=== PATIENT | male | born 1955 | race Caucasian/White ===

== ENCOUNTER 2022-11-03 10:46 | Inpatient (IN) | payer MEDICARE, OTHER, SELFPAY ==
--- NOTE | ~2022-11-03 | CT_ITS ---
EXAMINATION: CT abdomen pelvis w con DATE: 11/03/2022 14:41 INDICATION: Urinary retention. Pelvic pain. Burning with urination. TECHNIQUE: Computed tomography (CT) of the abdomen and pelvis was performed with 100 cc Omnipaque 350 intravenous contrast. The dose-length product was 679.85 mGy-cm. Automated exposure control and iter ative reconstruction technique were employed. COMPARISON: None. FINDINGS: There is dependent atelectasis. No significant pleural or pericardial effusion. Heart size normal. There are cystic structures in the renal kyrie bilaterally which may represent extrarenal pelv is or parapelvic cysts. No ureteral dilation. Bladder wall is thickened and slightly irregular, altho ugh decompressed from Gill catheter. Prostate gland is significantly enlarged. Nonobstructive bowel pattern. Small fat-containing umbilical hernia. Normal appendix. No free air or free fluid. No signif icant vascular abnormality. No lymphadenopathy. There is mild-moderate lumbar spondylosis. 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 No suspicious lytic or blastic lesions. No significant vascular abnormalit y. No lymphadenopathy. Gallbladder is present. No free air or free fluid. There is fatty infiltration of the liver. The spleen, pancreas, adrenal glands are unremarkable. IMPRESSION: 1. Mild bladder wall thickening with slight irregular margins which may represent sequela of outlet o bstruction from enlarged prostate gland and/or cystitis. Reviewed, dictated and finalized at location A. [facility] IMPRESSION: 1. Mild bladder wall thickening with slight irregular margins which may represe nt sequela of outlet obstruction from enlarged prostate gland and/or cystitis.
[2022-11-03 11:16] VITALS: BP 160/83; PULSE 95; RESP 14; TEMP 36.8; O2SAT 99
--- NOTE | 2022-11-03 12:31 | ED.MALEGU ---
HPI - Male Genitourinary General Chief complaint: Urogenital-Male Stated complaint: urinary retention that began last night Time Seen by Provider: 11/03/22 12:03 History of Present Illness HPI Narrative: Patient is a 67-year-old male presenting with urinary retention. States that he has not been able to urinate since last night. He complains of a lot of fullness in his lower abdomen. He states that he has had some dysuria lately. Reports he had an episode of urinary retention about a decade ago that required a temporary Gill catheter. He denies fevers, chest pain, shortness of breath, cough, vomiting, leg swelling. Related Data Home Medications Medication Instructions Recorded Confirmed atorvastatin 20 mg tablet 20 mg PO QHS 08/04/22 11/03/22 Allergies Allergy/AdvReac Type Severity Reaction Status Date / Time No Known Drug Allergies Allergy Unknown Unknown Verified 11/03/22 10:47 Review of Systems Review of Systems: All systems reviewed & are unremarkable except as noted in HPI and below PMFSH Past Medical History Medical History Hyperlipidemia Hypertension Surgical History Surgical History History of inguinal hernia repair History of removal of cyst Sebaceous cyst upper back. Family History Family History Other Colon cancer Diabetes mellitus Heart disease Social History Social History (Updated 11/03/22 @ 23:50 by Gunjan Cash PA-C) Social History: Surrogate medical decision maker: Jina Red, sibling. Code status: Full code. Smoking packs per day: 2 Smoking cigarettes per day: 40.0 Years smoked: 25 Smoking pack-years: 50.00 Smoking status: Former smoker Tobacco type: cigarettes Alcohol intake: current Drinks per week: 21 Substance use: never Lack of Transportation: No Lack of Food: Never True Current Housing: I Have Housing Concerned About Future Housing: No Difficulty Paying Gas/Electric Bills: No Difficulty Paying for Meds: No Currently Unemployed: No Education: High School Diploma/GED Difficulty w/ Childcare or Family Care: No Additional living arrangements comments: Lives in [place]. Spiritual care concerns: No Exam Narrative: GENERAL: Uncomfortable appearing HEAD: Normocephalic, atraumatic. EYES: PERRLA and EOMI. ENT: Nares clear, no rhinorrhea or epistaxis. Mucous membranes moist. NECK: Supple. CHEST: Clear to auscultation. No respiratory distress. HEART: Regular rate and rhythm ABDOMEN: Soft, mild tenderness in suprapubic region EXTREMITIES: Normal range of motion. No edema. SKIN: Warm, dry, no rash. NEURO: No focal deficits. Alert and oriented x3. PSYCH: Normal mood and affect. Course Vital Signs Vital signs: Vital Signs Temperature 98.2 F 11/03/22 11:16 Pulse Rate 95 11/03/22 11:16 Respiratory Rate 14 11/03/22 11:16 Blood Pressure 160/83 H 11/03/22 11:16 Pulse Oximetry 99 11/03/22 11:16 Oxygen Delivery Room Air 11/03/22 11:16 Temperature 98.6 F 11/03/22 20:03 Pulse Rate 78 11/04/22 08:00 Respiratory Rate 18 11/04/22 08:00 Blood Pressure 128/67 11/03/22 20:03 Pulse Oximetry 95 11/03/22 20:03 Oxygen Delivery Room Air 11/04/22 08:00 MDM - Male Genitourinary MDM Narrative Medical decision making narrative: Patient is a 67-year-old male presenting with urinary retention. Patient is hypertensive, otherwise vitals are within normal limits. Exam is remarkable for the above. Gill catheter was placed with drainage of only 30 to 50 cc of urine. It is clear, no blood is noted. The Gill catheter was placed without difficulty. Bedside ultrasound without adequate images to ascertain bladder size or if the Gill is truly in place. CT abdomen pelvis ordered. White count of 21. Rocephin has been
[2022-11-03 13:14] LABS: Basophils Absolute Auto 0.1 K/mm3 (0.0-0.1); Basophils Percent Auto 0.3 % (0.2-1.2); Eosinophils Percent Auto 0.1 % (0-4.4); Hematocrit 48.3 % (42.0-52.0); Hemoglobin 16.5 g/dL (14.0-18.0); Immature Granulocyte Absolute 0.12 K/mm3 (0.00-0.031); Immature Granulocyte Percent A 0.6 % (0-0.5); Lymphocytes Absolute Auto 0.73 K/mm3 (0.9-3.2); Lymphocytes Percent Auto 3.5 % (18.3-44.2); Mean Corpuscular HGB Conc 34.2 g/dl (32-36); Mean Corpuscular Hemoglobin 30.7 pg (26-34); Mean Corpuscular Volume 89.8 fl (80-100); Mean Platelet Volume 9.5 fl (7.4-10.4); Monocytes Absolute Auto 0.9 K/mm3 (0.1-0.6); Monocytes Percent Auto 4.3 % (2.6-8.5); Neutrophils Absolute Auto 19.2 K/mm3 (1.3-6.7); Neutrophils Percent Auto 91.2 % (45.5-73.1); Platelet Count Result 252 k/mm3 (150-375); Red Blood Count 5.38 M/mm3 (4.6-6.20); Red Cell Distribution Width 12.1 % (11.5-14.5)
[2022-11-03 13:16] LABS: Appearance Urine Clear (Clear); Bilirubin Urine Negative (Negative); Blood Urine Trace-intact (Negative); Color Urine Yellow (Yellow); Glucose Urine UA Negative (Negative); Ketones Urine Trace mg/dL (Negative); Leukocyte Esterase Ur Trace LEU/UL (Negative); Nitrate Urine Negative (Negative); Protein Urine Negative (Negative); Urobilinogen Urine 0.2 mg/dL (<2.0); pH Urine 5.5 (5.0-9.0)
[2022-11-03 13:18] LABS: Mucus Urine Rare /lpf; Squamous Epithelial Cell Urine Rare /hpf (Few); WBC Urine 21-30 /hpf
[2022-11-03 13:28] LABS: Add Urine Microscopic? YES
[2022-11-03 13:32] LABS: Alanine Aminotransferase 23 U/L (6-50); Albumin Level 4.5 g/dL (3.5-5.1); Alkaline Phosphatase 75 U/L (38-126); Anion Gap 8 mmol/L (8-16); Aspartate Amino Transferase 29 U/L (17-59); Bilirubin,Total 1.4 mg/dL (0.2-1.3); Blood Urea Nitrogen 15 mg/dL (9-20); Calcium 8.6 mg/dL (8.4-10.2); Carbon Dioxide 22 mmol/L (22-30); Chloride 105 mmol/L (98-107); Estimated CRCL calculation 73 ml/min; Estimated Glomerular Filt Rate > 60; Glucose 97 mg/dL (65-110); Potassium 4.4 mmol/L (3.4-5.0); Sodium 135 mmol/L (137-145)
[2022-11-03] MEDS: HYDROmorphone HCL INJ (*CRX) 1 MG/ML SYR 0.5 MG IV PUSH ×2 (14:55→17:02)
[2022-11-03] MEDS: ONDANSETRON INJ 4 MG/2 ML VIAL IV PUSH (15:12)
--- NOTE | 2022-11-03 17:00 | PC.NURSE ---
Contact patient's sister Carol with any updates or if discharged. Carol De [phone]
[2022-11-03] MEDS: SODIUM CHLORIDE 0.9% IV 1,000 ML 999 ML IV CONT (17:02)
[2022-11-03] MEDS: oxyBUTYnin CHLORIDE 5 MG TABLET PO (18:06)
[2022-11-03 18:10] VITALS: BP 147/75; PULSE 85; RESP 18; O2SAT 95
[2022-11-03 18:18] LABS: Influenza A QL RT-PCR Negative (Negative); Influenza B QL RT-PCR Negative (Negative); SARS-CoV-2 RNA PCR Negative
[2022-11-03 20:03] VITALS: BP 128/67; PULSE 78; RESP 18; TEMP 37; O2SAT 95
[2022-11-03 20:22] VITALS: BMI 32.3
--- NOTE | 2022-11-03 21:30 | PM.IMHP ---
H&P: HPI History of Present Illness Date/Time: 11/03/22 21:30 Chief Complaint: Difficulties urinating. Narrative: This is a 67-year-old male with hypertension, hyperlipidemia, enlarged prostate, and history of prostatitis 10 years ago presented to the emergency department with complaints of difficulties urinating. Patient provides the following history. He has not been able to urinate in any significant quantities since last evening and he has the sense that his bladder is full. He has intermittent issues with slow stream and feelings as though he is not completely emptying his bladder. The last couple of days he has had some mild dysuria but nothing significant. He has not had fever, chills, or sweats. He has not noticed any fullness in the perineum and denies testicular pain. No nausea, vomiting, or diarrhea. Gill catheter was inserted upon arrival to the emergency department and surprisingly only 50 mL of urine was obtained. CT of the abdomen and pelvis shows findings suggestive of acute cystitis and a significantly enlarged prostate. He has since been started on IV antibiotics and is being admitted in this setting for further treatment and urology consultation. Review of Systems Review of Systems: Twelve systems were reviewed and are negative except for as per HPI. [facility] Past Medical History Medical History Hyperlipidemia Hypertension Surgical History Surgical History History of inguinal hernia repair History of removal of cyst Sebaceous cyst upper back. Family History Family History Other Colon cancer Diabetes mellitus Heart disease Social History Social History (Updated 11/03/22 @ 23:50 by Gunjan Cash PA-C) Social History: Surrogate medical decision maker: Jina Red, sibling. Code status: Full code. Smoking packs per day: 2 Smoking cigarettes per day: 40.0 Years smoked: 25 Smoking pack-years: 50.00 Smoking status: Former smoker Tobacco type: cigarettes Alcohol intake: current Drinks per week: 21 Substance use: never Lack of Transportation: No Lack of Food: Never True Current Housing: I Have Housing Concerned About Future Housing: No Difficulty Paying Gas/Electric Bills: No Difficulty Paying for Meds: No Currently Unemployed: No Education: High School Diploma/GED Difficulty w/ Childcare or Family Care: No Additional living arrangements comments: Lives in [place]. Spiritual care concerns: No Meds Home Medications and Allergies Home Medications Medication Instructions Recorded Confirmed Type amlodipine 5 mg-benazepril 10 mg 1 cap PO DAILY #90 caps 08/04/22 11/03/22 Rx capsule (Lotrel) atorvastatin 20 mg tablet 20 mg PO QHS 08/04/22 11/03/22 History Allergies Allergy/AdvReac Type Severity Reaction Status Date / Time No Known Drug Allergies Allergy Unknown Unknown Verified 11/03/22 10:47 Vital Signs Vital Signs - 24 hr 11/03/22 11:16 11/03/22 18:10 11/03/22 20:03 Temperature 98.2 F 98.6 F Pulse Rate 95 85 78 Respiratory Rate 14 18 18 Blood Pressure 160/83 H 147/75 H 128/67 Pulse Oximetry 99 95 95 Oxygen Delivery Room Air Exam Narrative: General: Mildly ill-appearing male in the semi-Hannah position in bed. He appears uncomfortable. weight: 90.7 kg. BMI: 32.3. HEENT: PERRL, EOMI. Sclera anicteric. Tacky mucous membranes. Neck: Supple. Respiratory: Lungs are clear to auscultation bilaterally. Cardiovascular: Regular rate and rhythm with S1-S2. Gastrointestinal: Abdomen is soft, nontender, and nondistended with positive bowel sounds. Genitourinary: Gill catheter draining dark yellow urine. No swelling, redness, or tenderness of the scrotal sac. No perineal tenderness. Skin: Warm and dry. Face is a bit flushed. Extremities: No cyano
--- NOTE | 2022-11-03 21:41 | WPDURCON ---
Assessment and Plan Assessment and plan (1) BPH loc w urin obs/LUTS: Code(s): N40.1 - Benign prostatic hyperplasia with lower urinary tract symptoms Status: Acute (2) Acute cystitis: Code(s): N30.00 - Acute cystitis without hematuria Status: Acute Assessment and Plan: I suspect underlying prostatism with incomplete bladder emptying as the explanation for patient's episode of acute prostatitis Agree with ceftriaxone pending a culture result Will add tamsulosin for suspected underlying prostatism. Will also stop oxybutynin. We can use Pyridium and [place] for catheter discomfort. Patient can resume his normal diet is I it do not anticipate any need for surgical intervention at this time Urology Consult Note HPI Date Seen: 11/03/22 Requesting Physician: Stephanie Morales MD Primary Care Provider: PHYSICIAN NOT ON STAFF Consult Narrative Narrative: Jah Red is a 67 year old male, who I have met once 10 years ago with an episode of acute prostatitis, presents to the ED with a sense of urinary retention. Surprisingly, with catheterization only 50 cc of urine was obtained. CT scan and urinalysis to suggest acute cystitis. Close questioning he does report some component of prostatism on a regular basis. He has some slowing of his stream and a sense, on occasion, incomplete emptying. He denies prior history of urinary tract infection or urolithiasis, other than the episode of prostatitis in 2013. Review of Systems Cardiovascular: Cardiovascular: Denies chest pain, Denies lightheadedness, Denies palpitations and Denies dyspnea Respiratory: Respiratory: Denies dyspnea Gastrointestinal: Gastrointestinal: Denies diarrhea, Denies nausea and Denies vomiting Genitourinary: Genitourinary: Denies hematuria and Denies dysuria Endocrine: Endocrine: Denies palpitations [facility] Past Medical History Medical History (Updated 11/03/22 @ 21:43 by Rashi Schulz MD) Hyperlipidemia Hypertension Surgical History Surgical History (Updated 11/03/22 @ 21:24 by Gunjan Cash PA-C) History of inguinal hernia repair History of removal of cyst Sebaceous cyst upper back. Family History Family History Other Colon cancer Diabetes mellitus Heart disease Social History Social History (Updated 11/03/22 @ 21:24 by Gunjan Cash PA-C) Social History: Surrogate medical decision maker: Code status: Full code. Smoking packs per day: 2 Smoking cigarettes per day: 40.0 Years smoked: 25 Smoking pack-years: 50.00 Smoking status: Former smoker Tobacco type: cigarettes Alcohol intake: current Drinks per week: 21 Substance use: never Lack of Transportation: No Lack of Food: Never True Current Housing: I Have Housing Concerned About Future Housing: No Difficulty Paying Gas/Electric Bills: No Difficulty Paying for Meds: No Currently Unemployed: No Education: High School Diploma/GED Difficulty w/ Childcare or Family Care: No Additional living arrangements comments: Lives in [place]. Spiritual care concerns: No Meds Home Medications and Allergies Home Medications Medication Instructions Recorded Confirmed Type amlodipine 5 mg-benazepril 10 mg 1 cap PO DAILY #90 caps 08/04/22 11/03/22 Rx capsule (Lotrel) atorvastatin 20 mg tablet 20 mg PO QHS 08/04/22 11/03/22 History Allergies Allergy/AdvReac Type Severity Reaction Status Date / Time No Known Drug Allergies Allergy Unknown Unknown Verified 11/03/22 10:47 Vital Signs Vital Signs - 24 hr 11/03/22 11:16 11/03/22 18:10 11/03/22 20:03 Temperature 98.2 F 98.6 F Pulse Rate 95 85 78 Respiratory Rate 14 18 18 Blood Pressure 160/83 H 147/75 H 128/67 Pulse Oximetry 99 95 95 Oxygen Delivery Room Air Exam Const: General: no acute distress Resp: Effort & Inspection: normal respiratory effort GI:
[2022-11-03] MEDS: PHENAZOPYRIDINE HCL 100 MG TABLET 200 MG PO (22:20)
[2022-11-04] MEDS: HYDROcodone/acetaminophen (*CRX) 5-325 MG TABLET 1 TAB PO (05:47)
--- NOTE | 2022-11-04 07:42 | WPDUROPN2 ---
Progress Note: A&P Assessment and Plan (1) Benign localized prostatic hyperplasia with lower urinary tract symptoms (LUTS): Code(s): N40.1 - Benign prostatic hyperplasia with lower urinary tract symptoms Status: Acute (2) Acute cystitis: Code(s): N30.00 - Acute cystitis without hematuria Status: Acute Assessment and Plan: Much improved today. Continue Ceftriaxone pending culture. Tamsulosin indefinately. Voiding trial Sat. morning. Subjective Subjective Date/Time Seen: 11/04/22 07:42 Urethral irritation much improved Exam Const: General: no acute distress Resp: Effort & Inspection: normal respiratory effort GI: Inspection: non-distended GI Palp: No abdominal tenderness and No Guarding due to palpation present (GI) Auscultation: normal bowel sounds Objective Data Vital Signs Vital Signs: Vital Signs - 24 hr 11/03/22 11:16 11/03/22 18:10 11/03/22 20:03 Temperature 98.2 F 98.6 F Pulse Rate 95 85 78 Respiratory Rate 14 18 18 Blood Pressure 160/83 H 147/75 H 128/67 Pulse Oximetry 99 95 95 Oxygen Delivery Room Air Intake/Output Intake/Output: Intake & Output 11/01/22 11/02/22 11/03/22 11/04/22 23:59 23:59 23:59 23:59 Intake Total 1050 Balance 1050 Meds/Results Medications: Active Medications Generic Name Dose Route Start Last Admin Trade Name Freq PRN Reason Stop Dose Admin Amlodipine Besylate 5 mg 11/04/22 09:00 Amlodipine Besylate 5 Mg Tablet PO 12/04/22 08:59 DAILY [facility] Atorvastatin Calcium 20 mg 11/04/22 21:00 Atorvastatin 20 Mg Tablet PO QHS [facility] Lisinopril 10 mg 11/04/22 09:00 Lisinopril 10 Mg Tablet PO DAILY [facility] Phenazopyridine HCl 200 mg 11/03/22 21:45 11/03/22 22:20 Phenazopyridine Hcl 100 Mg Tablet PO 200 mg TIDWM PRN Administration Catheter Discomfort Tamsulosin HCl 0.4 mg 11/04/22 21:00 Tamsulosin Hcl 0.4 Mg Capsule PO QHS [facility] Radiology Results: ITS Impressions Abdomen/Pelvis CT 11/03/22 14:45 IMPRESSION: 1. Mild bladder wall thickening with slight irregular margins which may represent sequela of outlet obstruction from enlarged prostate gland and/or cystitis. Labs Labs: Laboratory Results - last 24 hr 11/03/22 11/03/22 11/03/22 12:55 12:55 12:55 WBC 21.0 H RBC 5.38 Hgb 16.5 Hct 48.3 MCV 89.8 MCH 30.7 MCHC 34.2 RDW 12.1 Plt Count 252 MPV 9.5 Immature Gran % (Auto) 0.6 H Neut % (Auto) 91.2 H Lymph % (Auto) 3.5 L [place] % (Auto) 4.3 Eos % (Auto) 0.1 Baso % (Auto) 0.3 Lymph # (Auto) 0.73 L [place] # (Auto) 0.9 H Eos # (Auto) 0.0 Baso # (Auto) 0.1 Abs Immat Gran (auto) 0.12 H Absolute Neuts (auto) 19.2 H Absolute Nucleated RBC 0.0 Nucleated RBC % 0.0 Sodium 135 L Potassium 4.4 Chloride 105 Carbon Dioxide 22 Anion Gap 8 BUN 15 Creatinine 0.90 Estim Creat Clear Calc 73 Estimated GFR > 60 Glucose 97 Calcium 8.6 Total Bilirubin 1.4 H AST 29 ALT 23 Alkaline Phosphatase 75 Total Protein 7.0 Albumin 4.5 Urine Color Yellow Urine Appearance Clear Urine pH 5.5 Ur Specific [place] 1.020 Urine Protein Negative Urine Glucose (UA) Negative Urine Ketones Trace Ur Blood (Man) Trace-intact Urine Nitrate Negative Urine Bilirubin Negative Urine Urobilinogen 0.2 Leukocyte Esterase Rfl Trace H Urine RBC 6-10 H Urine WBC 21-30 H Ur Squamous Epith Cells Rare Urine Mucus Rare Influenza A (RT-PCR) Influenza B (RT-PCR) SARS-CoV-2 RNA (RT-PCR) 11/03/22 17:32 WBC RBC Hgb Hct MCV MCH MCHC RDW Plt Count MPV Immature Gran % (Auto) Neut % (Auto) Lymph % (Auto) [place] % (Auto) Eos % (Auto) Baso % (Auto) Lymph # (Auto) [place] # (Auto) Eos # (Auto) Baso # (Auto) Abs Immat Gran (auto) Absolute Neuts (auto) Absolute Nucleated RBC N
[2022-11-04 08:00] VITALS: PULSE 78; RESP 18
[2022-11-04] MEDS: PHENAZOPYRIDINE HCL 100 MG TABLET 200 MG PO ×2 (09:36→20:04)
[2022-11-04] MEDS: lisinopriL 10 MG TABLET PO (09:36)
[2022-11-04] MEDS: amLODIPine BESYLATE 5 MG TABLET PO (09:36)
[2022-11-04 11:02] LABS: Hematocrit 44.7 % (42.0-52.0); Mean Corpuscular HGB Conc 33.6 g/dl (32-36); Mean Corpuscular Hemoglobin 30.4 pg (26-34); Mean Corpuscular Volume 90.5 fl (80-100); Mean Platelet Volume 9.5 fl (7.4-10.4); Platelet Count Result 199 k/mm3 (150-375); Red Blood Count 4.94 M/mm3 (4.6-6.20); Red Cell Distribution Width 12.5 % (11.5-14.5)
[2022-11-04 11:19] LABS: Anion Gap 5 mmol/L (8-16); Blood Urea Nitrogen 14 mg/dL (9-20); Calcium 8.4 mg/dL (8.4-10.2); Carbon Dioxide 26 mmol/L (22-30); Chloride 103 mmol/L (98-107); Estimated CRCL calculation 65 ml/min; Estimated Glomerular Filt Rate > 60; Glucose 116 mg/dL (65-110); Potassium 3.6 mmol/L (3.4-5.0); Sodium 134 mmol/L (137-145)
--- NOTE | 2022-11-04 11:47 | PM.IMPN ---
Progress Note: A&P Assessment and Plan (1) Benign localized prostatic hyperplasia with lower urinary tract symptoms (LUTS): Code(s): N40.1 - Benign prostatic hyperplasia with lower urinary tract symptoms Status: Acute Assessment and Plan: patient presented with urinary retention. reviewed urology notes and recommendations, consultation is appreciated. [place] to be secondary to underlying prostatism. continue with Gill catheter and plan for voiding trial tomorrow per Urology recommendations. Begin tamsulosin. Oxybutynin has been discontinued. Pyridium and hyoscyamine as needed for discomfort/ bladder spasm. monitor urine output (2) Prostatic enlargement: Code(s): N40.0 - Benign prostatic hyperplasia without lower urinary tract symptoms Status: Acute Assessment and Plan: as above (3) Cystitis: Code(s): N30.90 - Cystitis, unspecified without hematuria Status: Acute Assessment and Plan: evident on CT on admission. Urinalysis is abnormal. Urine culture is pending. Continue IV ceftriaxone while awaiting culture results (4) Hypertension: Code(s): I10 - Essential (primary) hypertension Status: Chronic Assessment and Plan: blood pressures are stable. Last BP 128/67. Continue home amlodipine -benazepril (5) Hyperlipidemia: Code(s): E78.5 - Hyperlipidemia, unspecified Status: Chronic Assessment and Plan: no acute issues. Continue home atorvastatin Time Spent With Patient Time: 35 minute spent on this encounter Time with patient: 25 - 35 minutes Subjective Date/time seen: 11/04/22 11:47 Interval history: date of service: 11/04/2022 Jah Red is a 67-year-old male with a history of hypertension, hyperlipidemia, prostatomegaly, and history of prostatitis 10 years ago who is seen in follow-up for bladder outlet obstruction. Patient reports he is doing better today but does have pain in his pelvic region and describes a pressure-like sensation in his penis. He reports the constant urge to urinate despite the Gill catheter being in place and draining. He denies suprapubic pain, flank pain, or back pain. Urine in the Gill bag is bright red, patient states he has not noticed this. He denied any episodes of hematuria prior to admission and this is felt to be secondary to Pyridium. Denies nausea, vomiting, fever, or chills. He is tolerating his diet. Denies shortness of breath, cough, chest pain, palpitations. Review of Systems Review of Systems: All systems reviewed & are unremarkable except as noted in HPI and below Exam Narrative: General: Well-nourished, well-appearing 67-year-old male, sitting up in bed, comfortable, NARD Neuro: awake, alert and oriented x4, speech clear, no focal neuro deficits noted HEENMT: normocephalic, atraumatic, EOMI, sclerae anicteric, moist oral mucosa Respiratory: clear to auscultation bilaterally, nonlabored breathing Cardio: regular rate, regular rhythm with S1-S2 Abdomen: nondistended, normoactive bowel sounds, soft, nontender to palpation : No CVA tenderness, Gill catheter patent and draining bright red urine Extremities: no edema, erythema, or tenderness to palpation, DP pulses 2+ bilaterally Skin: no rashes or lesions, warm and dry Psych: appropriate mood and affect, judgment and insight intact Objective Data Vital Signs Vital Signs: Vital Signs - 24 hr 11/03/22 18:10 11/03/22 20:03 11/04/22 08:00 Temperature 98.6 F Pulse Rate 85 78 78 Respiratory Rate 18 18 18 Blood Pressure 147/75 H 128/67 Pulse Oximetry 95 95 Oxygen Delivery Room Air Intake/Output Intake/Output: Intake & Output 11/01/22 11/02/22 11/03/22 11/04/22 23:59 23:59 23:59 23:59 Intake Total 1050 240 Balance 1050 240 Meds/Results Medications: Active Medications Generic Name Dose Route Start Last Admin Trade Name Freq PRN Reason Stop Dose Admin
[2022-11-04] MEDS: ACETAMINOPHEN 325 MG TABLET 650 MG PO (13:19)
[2022-11-04] MEDS: HYOSCYAMINE SULFATE 0.125 MG TABLET PO (13:20)
--- NOTE | 2022-11-04 13:21 | PCCCNOTE ---
On 11/04/22, the student, [Lindy Bautista], provided care and completed [facility] documentation on this patient. I have reviewed the student's documentation and agree with the findings.
[2022-11-04 14:17] VITALS: BP 136/60; PULSE 85; RESP 17; TEMP 36.8; O2SAT 96
[2022-11-04 19:57] VITALS: BP 157/88; PULSE 95; RESP 20; TEMP 37.4; O2SAT 97
[2022-11-04 20:00] VITALS: PULSE 95; RESP 20; O2SAT 97
[2022-11-04] MEDS: TAMSULOSIN HCL 0.4 MG CAPSULE PO (20:04)
[2022-11-04] MEDS: ATORVASTATIN 20 MG TABLET PO (20:04)
[2022-11-05] MEDS: LIDOCAINE HCL 2% GEL UROJET 10 ML PKG MUCOUS MEM (00:10)
[2022-11-05] MEDS: HYOSCYAMINE SULFATE 0.125 MG TABLET PO (03:34)
[2022-11-05 03:42] VITALS: BP 126/62; PULSE 80; RESP 18; TEMP 36.2; O2SAT 97
[2022-11-05 06:27] LABS: Hematocrit 46.8 % (42.0-52.0); Hemoglobin 15.7 g/dL (14.0-18.0); Mean Corpuscular HGB Conc 33.5 g/dl (32-36); Mean Corpuscular Hemoglobin 30.4 pg (26-34); Mean Corpuscular Volume 90.5 fl (80-100); Mean Platelet Volume 9.2 fl (7.4-10.4); Platelet Count Result 199 k/mm3 (150-375); Red Blood Count 5.17 M/mm3 (4.6-6.20); Red Cell Distribution Width 12.1 % (11.5-14.5); White Blood Count 12.7 K/mm3 (4.5-10.0)
[2022-11-05 06:44] LABS: Anion Gap 6 mmol/L (8-16); Blood Urea Nitrogen 13 mg/dL (9-20); Calcium 8.4 mg/dL (8.4-10.2); Carbon Dioxide 24 mmol/L (22-30); Chloride 101 mmol/L (98-107); Estimated CRCL calculation 65 ml/min; Estimated Glomerular Filt Rate > 60; Glucose 123 mg/dL (65-110); Potassium 3.9 mmol/L (3.4-5.0); Sodium 131 mmol/L (137-145)
[2022-11-05 10:20] VITALS: BP 153/95; PULSE 74; RESP 14; O2SAT 98
[2022-11-05] MEDS: amLODIPine BESYLATE 5 MG TABLET PO (10:20)
[2022-11-05] MEDS: lisinopriL 10 MG TABLET PO (10:21)
--- NOTE | 2022-11-05 11:52 | PM.DS ---
DS: Admitting Diagnosis Discharge Date 11/05/2022 Admitting Diagnosis urinary retention DS: Discharge Diagnosis Discharge Diagnosis (1) Benign localized prostatic hyperplasia with lower urinary tract symptoms (LUTS): Code(s): N40.1 - Benign prostatic hyperplasia with lower urinary tract symptoms Status: Acute Assessment and Plan: Patient presented with urinary retention. Patient was seen in consultation by Urology. [place] to be secondary to underlying prostatism. Gill catheter placed on admission. Voiding trial completed on 11/05/2022 and patient was able to void independently. Urinary symptoms resolved with Gill catheter discontinuation. Will follow-up with urology in 1-2 weeks as an outpatient (2) Prostatic enlargement: Code(s): N40.0 - Benign prostatic hyperplasia without lower urinary tract symptoms Status: Acute Assessment and Plan: as above (3) Cystitis: Code(s): N30.90 - Cystitis, unspecified without hematuria Status: Acute Assessment and Plan: evident on CT on admission. Patient started on IV ceftriaxone during admission urinalysis abnormal, however urine culture with less than 10,000 CFU seen Gram-negative organism isolated with no testing to be performed. Discussed with urology. Started on 7 day course of p.o. Cipro per Urology recommendations (4) Hypertension: Code(s): I10 - Essential (primary) hypertension Status: Chronic Assessment and Plan: blood pressures remained stable. Continue home amlodipine -benazepril (5) Hyperlipidemia: Code(s): E78.5 - Hyperlipidemia, unspecified Status: Chronic Assessment and Plan: No acute issues. Continue home atorvastatin DS: Summary Hospital Course Hospital Course: date of admission: 11/03/2022 date of discharge: 11/04/2022 Jah Red is a 67-year-old male with a history of hypertension, hyperlipidemia, prostatomegaly, and history of prostatitis 10 years ago who presented to the emergency department on 11/03/2022 with complaints of urinary retention for 1 day with recent dysuria. On presentation to the ED, his vital signs were stable, he was afebrile, WBC 21.0, additional laboratory workup unremarkable, urinalysis abnormal with trace leuk esterase and 21-30 WBC, and CT of the abdomen/pelvis showed mild bladder wall thickening with slightly irregular margins which may represent sequela outlet obstruction from enlarged prostate and/or cystitis. He was admitted to the hospitalist service for further evaluation and management and was seen in consultation by Urology. Please see above for further details. Gill catheter was initiated and patient was started on antibiotics. Also has been started on Flomax. Voiding trial completed on day of discharge, 11/05/2022 and patient able to void independently. He will continue with Flomax and will complete a 7 day course of Cipro per Urology recommendations. Outpatient follow-up with Urology in 1-2 weeks. Patient was instructed on worrisome signs and symptoms for which to return and he was educated on his medications. He was discharged in hemodynamically stable condition on 11/04/2022 Time Spent with Patient Time attestation: Total time spent providing and/or coordinating discharge services: 45 minutes Time spent: Greater than 30 minutes Exam Narrative: General: well-nourished, well-appearing 67-year-old male, sitting up in bed, comfortable, NARD Neuro: awake, alert and oriented x4, speech clear, no focal neuro deficits noted HEENMT: normocephalic, atraumatic, EOMI, sclerae anicteric, moist oral mucosa Respiratory: clear to auscultation bilaterally, nonlabored breathing Cardio: regular rate, regular rhythm with S1-S2 Abdomen: nondistended, normoactive bowel sounds, soft, nontender to palpation : No CVA tenderness Extremities: no edema, erythema, or tenderness to palpation, DP pulses 2+ bilaterally Skin:
--- NOTE | 2022-11-05 15:06 | WPDUROPN2 ---
Progress Note: A&P Assessment and Plan (1) Benign localized prostatic hyperplasia with lower urinary tract symptoms (LUTS): Code(s): N40.1 - Benign prostatic hyperplasia with lower urinary tract symptoms Status: Acute Assessment and Plan: Patient voiding without any difficulty at this point time. Will follow-up with nurse practitioner in 2-3 weeks time. (2) Acute cystitis: Code(s): N30.00 - Acute cystitis without hematuria Status: Acute Assessment and Plan: See above Subjective Subjective Date/Time Seen: 11/05/22 15:06 Principal diagnosis: Cystitis Interval history: Doing well at this time. Gill catheter has been removed patient is voiding without any difficulty. Review of Systems Review of Systems: All systems reviewed & are unremarkable except as noted in HPI and below Exam Const: General: cooperative, comfortable and no acute distress Resp: Effort & Inspection: normal respiratory effort Cardio: Rate: regular rate Rhythm: regular rhythm Objective Data Vital Signs Vital Signs: Vital Signs - 24 hr 11/04/22 19:57 11/04/22 20:00 11/05/22 03:42 Temperature 37.4 C 36.2 C L Pulse Rate 95 95 80 Respiratory Rate 20 20 18 Blood Pressure 157/88 H 126/62 Pulse Oximetry 97 97 97 Oxygen Delivery Room Air 11/05/22 10:20 11/05/22 10:30 Temperature Pulse Rate 74 Respiratory Rate 14 Blood Pressure 153/95 H Pulse Oximetry 98 Oxygen Delivery Room Air Intake/Output Intake/Output: Intake & Output 11/02/22 11/03/22 11/04/22 11/05/22 23:59 23:59 23:59 23:59 Intake Total 1050 1120 460 Output Total 1400 850 Balance 1050 -280 -390 Meds/Results Radiology Results: ITS Impressions Abdomen/Pelvis CT 11/03/22 14:45 IMPRESSION: 1. Mild bladder wall thickening with slight irregular margins which may represent sequela of outlet obstruction from enlarged prostate gland and/or cystitis. Labs Labs: Laboratory Results - last 24 hr 11/05/22 11/05/22 06:21 06:21 WBC 12.7 H RBC 5.17 Hgb 15.7 Hct 46.8 MCV 90.5 MCH 30.4 MCHC 33.5 RDW 12.1 Plt Count 199 MPV 9.2 Sodium 131 L Potassium 3.9 Chloride 101 Carbon Dioxide 24 Anion Gap 6 L BUN 13 Creatinine 1.00 Estim Creat Clear Calc 65 Estimated GFR > 60 Glucose 123 H Calcium 8.4
== END 2022-11-05 13:00 | disposition home or self-care (01) | DRG 726 ==
LOC: ANHED 12:04 → ANH2MED 17:59
PROVIDERS: Urology; Admitting Provider Hospitalist; Emergency Provider Emergency Medicine; Visit Provider Physician Assistant
DX: N40.1 Benign prostatic hyperplasia with lower urinary tract symptoms (principal); N30.00 Acute cystitis without hematuria; R33.8 Other retention of urine; I10 Essential (primary) hypertension; E78.5 Hyperlipidemia, unspecified; Z87.891 Personal history of nicotine dependence; Z20.822 Contact with and (suspected) exposure to COVID-19
CPT/HCPCS: 36415; 51702; 74177; 80048; 80053; 81001; 85025; 85027; 87086; 87088; 87636; 96365; 96366; 96375; 96376; 99285; A9270; G0378; J0696; J1170; J2405; J7030; Q9967